=== PATIENT | male | born 2005 | race Two or more races ===

== ENCOUNTER 2024-12-16 15:35 | Emergency (ER) | payer MEDICAID, SELFPAY ==
[2024-12-16 15:49] VITALS: BP 129/74; PULSE 77; RESP 16; TEMP 36.8; O2SAT 99; BMI 26.1
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
[2024-12-16] MEDS: DIPHTH,PERTUSS(ACELL),TET VAC 0.5 ML SYR- ADULT IMi (17:04)
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
== END 2024-12-16 17:51 | disposition home or self-care (01) ==
PROVIDERS: Emergency Provider Emergency Medicine
DX: M79.602 Pain in left arm (principal); M25.562 Pain in left knee; M79.642 Pain in left hand; Z23 Encounter for immunization
CPT/HCPCS: 73090; 73130; 73562; 90471; 90715; 99283